=== PATIENT | female | born 1955 | race Caucasian/White ===

== ENCOUNTER → 2020-07-18 10:28 | Outpatient (BNVA) | payer BC, SELFPAY | PROVIDERS: Visit Provider Nurse Practitioner Family | DX: R53.83 Other fatigue (principal) | CPT/HCPCS: 80053; 80061; 85025 ==

== ENCOUNTER → 2020-07-26 11:05 | Outpatient (BNVA) | payer BC, SELFPAY | PROVIDERS: Visit Provider Nurse Practitioner Family | DX: D72.829 Elevated white blood cell count, unspecified (principal); Z85.42 Personal history of malignant neoplasm of other parts of uterus | CPT/HCPCS: 85007; 85025; 88175 ==

== ENCOUNTER 2020-08-01 12:31 | Outpatient (CLI) | payer BC, SELFPAY ==
--- NOTE | 2020-08-01 12:53 | ECG_ITS ---
[facility] Test Date: 2020-08-01 Pat Name: Nelsy Rodriguez Department: Room: Gender: Female Eyeglass Fitter: : 1955 Requested By: Rosa Xie Order Number: [id number] Corona MD: Venus Browning M.D. Interpretive Statements NAME OF STUDY: TREADMILL STRESS TEST INDICATION: Chest Pressure Baseline blood pressure of 105/61 mm Hg, heart rate 84 beats per minute and oxygen saturation of 96%. EKG showed normal sinus rhythm, normal axis with normal ST-Ts.. The patient exercised for 8 minutes 2 seconds on a standard [employer] protocol. Patient attained a maximum heart rate of 141 beats per minute(89% of the maximum predicted heart rate) with a blood pressure at the peak exercise of 166/76 mm Hg. The EKG at the peak exercise revealed sinus tachycardia with nonspecific ST depression. Interpretation limited by artifact. Patient did not have any chest pain or any significant arrhythmis with the exercise. Study was terminated due to exertional fatigue and shortness of breath. During the recovery phase, there were no new changes. Blood pressure at the end of the recovery phase was 144/71 mm Hg with a heart rate of 86 beats per minute and oxygen saturation of 98%. CONCLUSION: 1. Normal EKG response to treadmill exercise. Interpretation limited by artifact. 2. No exercise-induced chest pain or cardiac arrhythmia. 3. Excellent exercise tolerance, attained a maximum of 10.2 METs. Maximum VO2 of 35.7 mL/kg/min. 4. Baseline normal blood pressure with normal response to exercise. Electronically Signed On 08-02-2020 18:33:20 CDT by Venus Browning M.D. [id number]
[2020-08-01 13:01] VITALS: BMI 25.5
[2020-08-01 13:39] VITALS: BP 144/71; PULSE 87
== END 2020-08-01 12:32 | disposition home or self-care (01) ==
LOC: CDL 12:31
PROVIDERS: PCP Nurse Practitioner Family; Visit Provider Nurse Practitioner Family
DX: R07.89 Other chest pain (principal)
CPT/HCPCS: 93017

== ENCOUNTER 2020-08-02 14:36 | Outpatient (CLI) | payer BC, SELFPAY ==
[2020-08-02 15:02] LABS: Hemoglobin 14.1 g/dL (11.5-15.3); Mean Corpuscular HGB Conc 33.6 g/dL (30.0-36.0); Mean Corpuscular Hemoglobin 31.2 pg (28.0-34.0); Mean Corpuscular Volume 92.9 fL (81-99); Mean Platelet Volume 8.9 fL (7.4-10.4); Platelet Count 163 10^3/cmm (130-400); Red Blood Count 4.52 10^6/uL (4.1-5.3); White Blood Count 9.7 10^3/uL (4.0-10.0)
[2020-08-02 15:02] LABS: Add Urine Microscopic? NO; Bilirubin Urine Neg (Negative); Blood Urine Neg (Negative); Glucose Urine UA Norm (Normal); Ketones Urine Negative (Negative); Leukocyte Esterase Urine Negative (Negative); Nitrate Urine Negative (Negative); Protein Urine Neg (Negative); Specific Gravity, Urine 1.005 (1.005-1.030); Urine Appearance Clear (CLEAR); Urine Color Yellow (Yellow); Urobilinogen Urine Norm (Negative); pH Urine 7 (5-7)
[2020-08-02 15:41] LABS: C Reactive Protein 8.6 mg/L (0.0-4.9); Thyroid Stimulating Hormone 0.97 uIU/mL (0.27-4.20); Vitamin B12 935 pg/mL (232-1245)
[2020-08-02 15:58] LABS: Absolute Segmented Neutrophil 4.5 10/cmm (1.6-7.1); Eosinophils 1 %; Lymphocytes 33 %; Lymphocytes Absolute 4.8 10^3/cmm (1.2-3.4); Monocytes Absolute 0.4 10^3/cmm (0.1-0.6); Segmented Neutrophils 46 %; Total Cells Counted 100 (0-100)
[2020-08-02 16:00] LABS: Absolute Neutrophil 4.5 10^3/cmm (1.4-6.5); LAB Peripheral Smear Sent for Review; Platelet Estimate Normal (Normal)
[2020-08-02 16:08] LABS: Erythrocyte Sedimentation Rate 13 mm/hr (0-15)
== END 2020-08-02 14:37 | disposition home or self-care (01) ==
PROVIDERS: PCP Nurse Practitioner Family; Visit Provider Nurse Practitioner Family
DX: R53.83 Other fatigue (principal); D72.829 Elevated white blood cell count, unspecified; D72.819 Decreased white blood cell count, unspecified; R35.0 Frequency of micturition
CPT/HCPCS: 80500; 81000; 81003; 82607; 84443; 85007; 85027; 85651; 86140

== ENCOUNTER → 2020-08-07 14:51 | Outpatient (BNVA) | payer BC, SELFPAY | PROVIDERS: PCP Nurse Practitioner Family; Visit Provider Nurse Practitioner Family | DX: Z11.59 Encounter for screening for other viral diseases (principal); B96.89 Other specified bacterial agents as the cause of diseases classified elsewhere; J01.90 Acute sinusitis, unspecified; R05 Cough | CPT/HCPCS: 87635 ==

== ENCOUNTER 2020-08-13 11:16 | Emergency (ER) | payer BC, SELFPAY ==
[2020-08-13 11:31] VITALS: BP 148/86; PULSE 80; RESP 18; TEMP 36.9; O2SAT 97; BMI 26.2
--- NOTE | 2020-08-13 11:36 | XR_ITS ---
WS: [id number] XR chest 1V portable [id number] REASON FOR EXAM: dyspnea/cough FINDINGS: There is no previous examination for comparison. The heart and mediastinum are within normal limits. There are interstitial and pleural changes in the left lower lateral lung field. In the right lower lung field there is an ill-defined infiltrative process and a questionable cystic- like lucency. No other significant findings. XR/XR chest 1V portable [id number] IMPRESSION: Left lung changes as above. In part these are likely chronic however an acute i nflammatory process cannot be excluded. In the right lower lung there is concern for an acute inflammatory process. The cystic lucency may represent overlapping of vascular markings however a pneuma tocele or possibly even a small lung abscess is not confidently excluded on thi s single examination. Follow-up upright PA and lateral chest would be reasonabl e follow-up. If clinically warranted a CT scan of the chest would likely be def initive.
--- NOTE | 2020-08-13 12:25 | W.ED.SOB ---
HPI - SOB/Dyspnea General: Chief Complaint: Shortness of Breath/Dyspnea Stated Complaint: SOB; PREVIOUSLY TESTED COVID + Time Seen by Provider: 08/13/20 12:22 History of Present Illness: HPI Narrative: 64-year-old female with known positive COVID status. She tested 1 week ago. Today she is reporting to be more short of breath, she is 97% on room air. MD elicited complaint: shortness of breath and cough Pertinent past history: other (COVID-19 positive) Onset (ago): day(s) Context: recent illness Timing: constant Severity: moderate Exacerbating factors: exertion and coughing Relieving factors: nothing Associated symptoms: Reports chest congestion and cough; Deny abdominal pain, chest pain, diaphoresis, dizziness, extremity pain, fever(s), hemoptysis, lightheadedness, myalgias, nausea, orthopnea, palpitations, paresthesias, polydipsia, polyuria, rash, sense of impending doom, syncope or vomiting Treatment prior to arrival: none Review of Systems Const: Denies: fever(s) or diaphoresis ENMT: Denies: throat pain, ear or mastoid pain, nasal discharge or nasal congestion Card: Denies: chest pain, palpitations, lightheadedness, syncope or orthopnea Resp: Reports: chest congestion; Denies: hemoptysis GI: Denies: abdominal pain, nausea or vomiting : Denies: flank pain, difficulty voiding, dysuria, urinary frequency or urinary urgency Musc: Denies: extremity pain Skin/Breast: Denies: rash or pruritus Neuro: Denies: dizziness Endo: Denies: polyuria or polydipsia PFSH ED PFSH: Medical History Hx of cancer of uterus Surgical History History of hysterectomy for malignancy Hx of tonsillectomy Family History Mother Cancer colon Father Cancer brain Social History Smoking and tobacco status: never smoked Second hand smoke exposure: No Physical Exam Const: COMMON NORMALS: average body habitus, patient oriented x3 and alert GENERAL APPEARANCE: cooperative, comfortable, well kempt and well developed NUTRITIONAL APPEARANCE: obese ORIENTATION/CONSCIOUSNESS: Yes awake, Yes oriented to person and Yes oriented to place HENMT: COMMON NORMALS: normocephalic, atraumatic and EAC's normal HEAD & SCALP: normocephalic and atraumatic EXTERNAL AUDITORY CANAL: EAC's normal Neck/C-Spine: COMMON NORMALS: no meningeal signs Resp: COMMON NORMALS: normal respiratory effort, No retractions and No use of accessory muscles AUSCULTATION: wheezes Cardio: COMMON NORMALS: regular rate and regular rhythm RATE: regular rate RHYTHM: regular rhythm HEART SOUNDS: no murmurs GI: COMMON NORMALS: Normal to inspection, nondistended, normoactive bowel sounds present, Soft to palpation and No hepatosplenomegaly present PALPATION: Yes Soft to palpation and Yes No hepatosplenomegaly present : COMMON NORMALS: Yes no CVA tenderness BLADDER/KIDNEY EXAM: Yes no CVA tenderness Back/Pelvis: COMMON NORMALS: no CVA tenderness LUMBAR SPINE/LOWER BACK: Yes normal to inspection Extremity: COMMON NORMALS: no clubbing, cyanosis or edema, no calf tenderness and no pedal edema Neuro: COMMON NORMALS: patient oriented x3 SENSORIUM/ORIENTATION: Yes alert, Yes oriented to person and Yes oriented to place MENINGEAL SIGNS: Yes no meningeal signs Psych: APPEARANCE: Yes well kempt Skin: COMMON NORMALS: no rashes or lesions noted and turgor normal GENERAL SKIN EXAM: no rashes or lesions noted and turgor normal Course Vital Signs: Vital signs: Vital Signs Temperature 98.4 F 08/13/20 11:31 Pulse Rate 80 08/13/20 11:31 Respiratory Rate 18 08/13/20 13:25 Blood Pressure 148/86 08/13/20 11:31 Pulse Oximetry 96 08/13/20 13:25 MDM - SOB/Dyspnea MDM Narrative: Medical decision making narrative: Reviewed findings with patient her sats remained good on room air will discharge home start dexamethasone follow-up with the primary care doctor the next 1 to 2 days worsening shortness of breath return Lab Data: Labs: Lab Results 08/13/20 Range/Units 12:22 Specimen Type Arterial Sample Site Radial, right ABG pH 7.45 (7.35-7.45) ABG pCO2 39.5 (35-45) mmHg ABG pO2 68.4 L (80.0-100.0) mmH g ABG HCO3 27.1 H (22-26) mmol/L ABG O2 Saturation 96.2 ABG Base Excess 2.9 H (-2.0-2.0) mmol/ L Pierre Test Pos A-a O2 Gradient 4.4 L (5-10) mmHg Hematocrit 41.7 (37-47) % Hgb O2 Saturation 94.8 L (95-100) % Carboxyhemoglobin 0.9 (0.4-20.1) %THgb Methemoglobin 0.6 (0.4-1.5) % Total Hemoglobin 13.6 (12-16) g/dL Sodium 139.0 (131-143) mmol/L Potassium 4.0 (3.5-5.0) mmol/L Glucose 94.0 (70-115) mg/dL Ionized Calcium 1.2 (1.1-1.4) mmol/L O2 Delivery Device Room air FiO2 21.0 % Market Research Intern ID Monro Discharge Plan Discharge Patient Disposition: Home Clinical Impression: COVID-19, Asthma Condition: Stable Prescriptions: New dexamethasone 6 mg tablet 6 mg PO Q24H Qty: 7 RF: 0 No Action azithromycin [Zithromax] 250 mg tablet See Rx Instructions PO .COMPLEX Qty: 6 RF: 0 Discharge Orders: Discharge Order (Routine); Ordered 08/13/20 Ordered By: Tin Lauren Referrals: Rosa Xie FNP [Primary Care Provider] - Discharge Diet: Usual diet Discharge Activity: Increase activity as tolerated Activity Restrictions/Additional Instructions: Monitor oxygen saturations at home with your O2 sat monitor provided to you today at the time of discharge. Follow-up with your primary care doctor tomorrow via telehealth. Case management will help arrange. Discharge Date/Time: 08/13/20 13:25 Coding Level of Care Code ED Full Service Vending Driver for Jorgito Jauregui
[2020-08-13 12:35] LABS: ABG PCO2 39.5 mmHg (35-45); ABG PH Result 7.45 (7.35-7.45); Alveolar-Arterial Oxygen Gradi 4.4 mmHg (5-10); Arterial Blood Gas Hematocrit 41.7 % (37-47); Base Excess ABG 2.9 mmol/L (-2.0-2.0); Blood Gas Allen Test Pos; Blood Gas Operator Identificat MONRO; Blood Gas Sample Site Radial, right; Blood Gas Sample Type Arterial; Carboxyhemoglobin 0.9 %THgb (0.4-20.1); HCO3 ABG 27.1 mmol/L (22-26); HGB O2 Sat 94.8 % (95-100); Ionized Calcium Level - ABG 1.2 mmol/L (1.1-1.4); Methemoglobin 0.6 % (0.4-1.5); Oxygen Device ROOM AIR; Oxygen Saturation ABG 96.2; PO2 ABG 68.4 mmHg (80.0-100.0); Total Hemoglobin 13.6 g/dL (12-16)
[2020-08-13 13:25] VITALS: RESP 18; O2SAT 96
--- NOTE | 2020-08-13 14:09 | DCPLANNER ---
manager council was asked to schedule a follow up appointment for patient with primary care for a telehealth visit. manager council called patient to confirm who her primary care physician was, patient stated that she sees Rosa Xie at [facility]. manager council called [facility] clinic, a tele health visit is scheduled for Aug at 3:00 with Rosa Xie. manager council called patient and gave patient the appointment information. manager council told patient that the clinic would text patient with a link to click on and that would put patient in the waiting room to get her ready for the tele health visit.
--- NOTE | 2020-08-18 16:21 | DCPLANNER ---
Patient had follow up appointment scheduled at [facility] [place] [facility] - patient did attend appointment.
== END 2020-08-13 13:25 | disposition home or self-care (01) ==
PROVIDERS: Emergency Provider Family Medicine; PCP Nurse Practitioner Family
DX: U07.1 COVID-19 (principal); Z85.42 Personal history of malignant neoplasm of other parts of uterus
CPT/HCPCS: 12345; 36600; 71045; 80051; 82810; 83986; 99281; 99283

== ENCOUNTER 2020-09-07 14:10 | Outpatient (CLI) | payer BC, SELFPAY ==
--- NOTE | 2020-09-07 14:30 | MM_ITS ---
WS: [id number] Bilateral screening digital mammogram, 09/07/2020 Clinical Data: screening Comparison: 05/03/2014, 03/23/2013, 03/11/2012. Findings: The breast parenchymal pattern shows extreme density No spiculated masses or clustered calcifications are seen. There are no secondary signs of carcinoma. There are small lymph nodes in each axilla. Imp ression: 1. Negative bilateral mammogram unchanged. 2. Recommend annual screening mammograms. MM/[place] [id number] BIRADS: 1-Negative FOLLOW UP: 1 Year Follow-up The CAD mechanical and auto body car checker was used.
== END 2020-09-07 14:11 | disposition home or self-care (01) ==
LOC: RADSHAW 14:14
PROVIDERS: PCP Nurse Practitioner Family; Visit Provider Nurse Practitioner Family
DX: Z12.31 Encounter for screening mammogram for malignant neoplasm of breast (principal)
CPT/HCPCS: 77067

== ENCOUNTER 2020-10-17 15:24 | Outpatient (CLI) | payer BC, SELFPAY ==
--- NOTE | 2020-10-17 15:36 | XRR_ITS ---
PROCEDURE INFORMATION: Exam: XR Chest, 2 Views Exam date and time: 10/17/2020 3:37 PM Age: 65 years old Clinical indication: Dyspnea; Patient HX: SOB post covid; Additional info: R06.00 - dyspnea, unspecified TECHNIQUE: Imaging protocol: XR of the chest Views: 2 views. COMPARISON: CR XR chest 1V portable [id number] 08/13/2020 11:59 AM FINDINGS: Lungs: Mildly hyperaerated lungs consistent with deep inspiratory effort vs reactive airway disease vs mild COPD . Pleural space: Unremarkable. No pleural effusion. No pneumothorax. Heart/Mediastinum: Unremarkable. No cardiomegaly. Bones/joints: Unremarkable. XR/XR chest 2V* [id number] IMPRESSION: Mildly hyperaerated lungs consistent with deep inspiratory effort vs reactive airway disease vs mild COPD .
== END 2020-10-17 15:25 | disposition home or self-care (01) ==
PROVIDERS: PCP Nurse Practitioner Family; Visit Provider Nurse Practitioner Family
DX: R06.00 Dyspnea, unspecified (principal)
CPT/HCPCS: 71046

== ENCOUNTER → 2020-11-28 13:23 | Outpatient (BNVA) | payer BC, SELFPAY | PROVIDERS: PCP Nurse Practitioner Family; Visit Provider Internal Medicine Critical Care Medicine | DX: R06.02 Shortness of breath (principal) | CPT/HCPCS: 87635 ==

== ENCOUNTER 2020-12-04 09:13 | Outpatient (CLI) | payer BC, SELFPAY ==
--- NOTE | 2020-12-04 | USCV_ITS ---
Nelsy Rodriguez Age: 65 Gender: F : 1955 Exam Date: 12/04/2020 10:18 Ordering Phys: Sheeba Lawson MD Technologist: Amada Woo Exam Location: [facility] [place] Indication: SOB Aortic Velocity @ SMA (cm/s) CONCLUSIONS 1-Normal left ventricular cavity size. Normal left ventricular systolic function. Left ventricular ejection fraction is estimated at 61 %. Grade II/IV diastolic dysfunction, moderately elevated filling pressures. 2-There is no pericardial effusion. 3-Pulmonary artery systolic pressure is within normal limits. 4-No significant valve abnormalities. 5-There are no prior echocardiogram studies to compare. Richard Jones MD Edited by: CV Washing Machine Repairer (Electronically Signed) Final Date: 04 December 2020 18:59 Amended: 05 December 2020 06:42 C
--- NOTE | 2020-12-04 11:11 | PFTS_ITS ---
Date of Study:12/04/20 Date of Dictation: MECHANICS: Forced vital capacity (FVC) is normal. Forced expiratory volume in one second (FEV1) is normal. FEV1/FVC is normal. FLOW VOLUME LOOP: Likely normal. The initial peak expiratory flow is not present in the flow volume loop. LUNG VOLUMES: Total lung capacity (TLC) is normal. Residual volume (RV) is mildly decreased. DIFFUSING CAPACITY FOR CARBON MONOXIDE: Normal. INTERPRETATION: The prebronchodilator spirometry is normal. No postbronchodilator spirometry was performed. Lung volumes showed mild reduction in residual volume which is likely nonspecific. Gas exchange (DLCO) is normal. MTDD
== END 2020-12-04 09:14 | disposition home or self-care (01) ==
PROVIDERS: PCP Nurse Practitioner Family; Visit Provider Internal Medicine Critical Care Medicine
DX: R06.02 Shortness of breath (principal); I51.81 Takotsubo syndrome
CPT/HCPCS: 93306; 94010; 94726; 94729

== ENCOUNTER → 2021-03-27 10:39 | Outpatient (BNVA) | payer BC, SELFPAY | PROVIDERS: PCP Nurse Practitioner Family; Visit Provider Nurse Practitioner Family | DX: D72.829 Elevated white blood cell count, unspecified (principal); R53.81 Other malaise; R53.83 Other fatigue; Z79.899 Other long term (current) drug therapy | CPT/HCPCS: 80053; 85025 ==

== ENCOUNTER → 2021-04-09 08:28 | Outpatient (BNVA) | payer BC, SELFPAY | PROVIDERS: PCP Nurse Practitioner Family; Visit Provider Nurse Practitioner Family | DX: D72.829 Elevated white blood cell count, unspecified (principal) | CPT/HCPCS: 85007; 85027 ==

== ENCOUNTER 2021-04-23 12:01 | Outpatient (CLI) | payer BC, SELFPAY ==
[2021-04-23 12:29] LABS: Basophils # 0.1 10^3/uL (0.0-0.1); Basophils % 0.7 %; Eosinophils # 0.1 10^3/uL (0.0-0.8); Eosinophils % 0.9 %; Hematocrit 42.1 % (37.0-47.0); Hemoglobin 14.6 g/dL (11.5-15.3); Lymphocytes # 10.6 10^3/uL (0.8-4.8); Mean Corpuscular HGB Conc 34.7 g/dL (30.0-36.0); Mean Corpuscular Volume 89.4 fL (81-99); Mean Platelet Volume 9.4 fL (7.4-10.4); Monocytes # 0.7 10^3/uL (0.2-0.9); Monocytes % 4.4 %; Neutrophils # 4.69 10^3/uL (1.8-7.7); Neutrophils % 28.8 %; Nucleated Red Blood Cells % 0 %; Platelet Count 240 10^3/cmm (130-400); Red Blood Count 4.71 10^6/uL (4.1-5.3); Red Cell Distribution Width 12.5 % (12.1-15.1); White Blood Count 16.3 10^3/uL (4.0-10.0)
[2021-04-23 12:54] LABS: Slide Review Slide Review Perform
--- NOTE | 2021-04-24 17:47 | ONC CON_ITS ---
Dr. Cox New Patient Note Patient: Nelsy Rodriguez Unit #: [id number]: 1955 Dicatated By: Michelle Cox M.D.Date of Visit: Apr 23, 2021 Onc MED New Patient/Consult Referring Physician: Liz Jacob History of Present Illness: Ms. Jaqueline Mariscal, is a 84-year-old female with a history of increased white blood cells since October 2020, as per patient her white blood count never got below 12,000. As per patient she has history of walking pneumonia about a year ago at that time she was treated with antibiotics and steroids for 10 days and responded well, she has history of chronic arthritis which is being treated with Mobic, patient also has history of COPD asthma for which she takes Breo, which is a combination of fluticasone and Vilanterol inhaler, Denies [id number] steroid-containing medication or regular use of steroids or herbs Patient denies smoking or secondhand smoking denies any alcohol use. Patient denies any night sweats, denies any weight loss, denies any abdominal fullness, denies any peripheral lymphadenopathy Past Medical History: Ms. Vieras medical history consists of history of uterine cancer and covid 19 in 2020 (Treated). Past Surgical History: Ms. Vieras surgical/procedural history consists of hysterectomy and tonsillectomy. Medications: Furosemide 1 Tablet (of 20 mg) Oral daily Allergies: No Known Allergies. Social History: Ms. Rodriguez is . Ms. Rodriguez has never smoked. She has no history of drinking. Family History: Ms. Rodriguez's mother at age 68: colon cancer. Ms. Vieras father at age 69: brain cancer. Review Of Symptoms: Review of Systems is not available for this patient. Vital Signs: Performed on Apr 23, 2021 15:02: 0, 0, 26.09, 1.74 sq.m, 64 in, 98 %, 64 /min, 18 /min, 125/74 mm(hg), 97.2 F (LOW), and 152 lbs (HIGH). Performance Status: 0 - Fully active, able to carry on all predisease activities without restrictions. (ECOG) Physical Examination: ENMT - No mouth sores, no thrush, no jaundice, No cervical or axillary lymphadenopathy, Respiratory - Lungs are clear to auscultation, Cardiovascular - Regular rate and rhythm of heart, Abdomen - Soft, bowel sounds present, Extremities - No visible edema or rash. Lab/Imaging: Most recent lab results are not available for this patient. Impression: Isolated mild leukocytosis, etiology unclear could be due to chronic steroid-containing inhalers use, stress-related, considering her age underlying myeloproliferative disorder cannot be ruled out but less likely, or due to chronic inflammatory process like arthritis, History of arthritis, COPD, history of walking pneumonia Hypothyroidism Plan: Discussed with patient regarding her labs white blood count 11.3, normal being 4-10,000, hemoglobin 14.9 hematocrit 46.7 platelets 264,000 with normal differential Clinically, patient doing well with no signs symptoms history of acute or chronic infection, follow-up labs shows improvement in her mild isolated Leukocytosis ,, at this point ,we will monitor and she will return to clinic in 1 month with CBC with differential, if there is a worsening of mild isolated Leukocytosis, will consider holding off steroid containing inhaler, if there is no improvement, will consider whole blood flow cytometry to rule out myeloproliferative disorder Signed By: Michelle Cox M.D. <<Signature on File>>
--- NOTE | 2021-04-25 09:00 | ONC CON_ITS ---
Dr. Cox New Patient Note Patient: Nelsy Rodriguez Unit #: [id number]: 1955 Dicatated By: Michelle Cox M.D.Date of Visit: Apr 23, 2021 Onc MED New Patient/Consult Referring Physician: Liz Jacob History of Present Illness: Ms. Nelsy Rodriguez, is a 65-year-old female with history of progressive leukocytosis/lymphocytosis, as per patient in June 2020 she went to see her PMD with progressive shortness of breath and lab work-up at that time showed a white blood count was around 20,000, she was treated with antibiotics with that her white blood count dropped down to 9000 range. Repeat CBC done on March 27, 2021 showed white blood count 13.8, hemoglobin 14.7 hematocrit 43.5 platelets 234,000 and lymphocytes 9300, repeat CBC done on April 09, 2021 shows white blood count 13.5, hemoglobin 14.3 hematocrit 43 platelets 202,000 with absolute lymphocyte counts 8400. Patient denies any weight loss rather weight gain since she was diagnosed with Covid infection in July 2020, also complaining of hot flashes since hysterectomy For, As per patient early uterine cancer, done 8-9 years ago. But denies any abdominal fullness denies any peripheral lymphadenopathy denies any recurrent infections denies any dysphagia, denies any jaundice, denies any skin rash or itching denies any recurrent fever, denies any bony pains but generalized weakness and fatigue Patient denies complaint of alcohol use Past Medical History: Ms. Rodriguez's medical history consists of history of uterine cancer and covid 19 in 2019 (Treated). Past Surgical History: Ms. Rodriguez's surgical/procedural history consists of hysterectomy and tonsillectomy. Medications: Furosemide 1 Tablet (of 20 mg) Oral daily Allergies: No Known Allergies. Social History: Ms. Rodriguez is . Ms. Rodriguez has never smoked. She has no history of drinking. Family History: Ms. Rodriguez's mother at age 68: colon cancer. Ms. Rodriguez's father at age 69: brain cancer. Review Of Symptoms: Review of Systems is not available for this patient. Vital Signs: Performed on Apr 23, 2021 15:02: 0, 0, 26.09, 1.74 sq.m, 64 in, 98 %, 64 /min, 18 /min, 125/74 mm(hg), 97.2 F (LOW), and 152 lbs (HIGH). Performance Status: 0 - Fully active, able to carry on all predisease activities without restrictions. (ECOG) Physical Examination: ENMT - No mouth sores, no thrush, no jaundice, No cervical or axillary lymphadenopathy, Respiratory - Lungs are clear to auscultation, Cardiovascular - Regular rate and rhythm of heart, Abdomen - Soft, bowel sounds present, Extremities - No visible edema or rash. Lab/Imaging: Most recent lab results are not available for this patient. Impression: Isolated leukocytosis/lymphocytosis, etiology most likely lymphoproliferative disorder like CLL or SLL other possibility could be viral infection, patient was diagnosed with Covid infection in July 2020 or medication use but less likely or chronic inflammation Generalized weakness and fatigue, etiology unclear could be due to above History of hysterectomy about 8 or 9 years ago for as per patient early uterine cancer. Plan: Discussed with patient regarding etiology of leukocytosis/lymphocytosis, on exam there is no evidence of peripheral lymphadenopathy or organomegaly so etiology could be lymphoproliferative disorder like chronic lymphocytic leukemia or small lymphocytic lymphoma or viral infection, patient has history of Covid infection in July 2020. Patient denies any obvious B symptoms like weight loss, drenching sweating or recurrent fever but generalized weakness and fatigue which could be multifactorial At this point, will proceed with whole blood flow cytometry if it confirms CLL or lymphoproliferative disorder, will consider CT scan of chest abdomen pelvis to rule out central lymphadenopathy or organomegaly. Patient return to clinic in 1 month with CBC CMP and LDH, whole blood flow cytometry. Signed By: Michelle Cox M.D. <<Signature on File>>
[2021-04-25 14:43] LABS: Miscellaneous Test See Scanned Lab Rpt
== END 2021-04-23 12:02 | disposition home or self-care (01) ==
LOC: ONCMED 12:04
PROVIDERS: PCP Nurse Practitioner Family; Visit Provider Internal Medicine Hematology & Oncology
DX: D72.820 Lymphocytosis (symptomatic) (principal); M19.90 Unspecified osteoarthritis, unspecified site; J44.9 Chronic obstructive pulmonary disease, unspecified; E03.9 Hypothyroidism, unspecified; Z87.01 Personal history of pneumonia (recurrent); Z79.899 Other long term (current) drug therapy
CPT/HCPCS: 85025; 88184; 88185; 99204

== ENCOUNTER 2021-05-31 10:22 | Outpatient (CLI) | payer BC, SELFPAY ==
--- NOTE | 2021-05-31 12:58 | ONC FU_ITS ---
Dr. Cox follow up note Patient: Nelsy Rodriguez Unit #: [id number]: 1955 Dicatated By: Michelle Cox M.D.Date of Visit:May 31, 2021 Onc Med Follow-up/Prog Note History of Present Illness: Ms. Nelsy Rodriguez, is a 65-year-old female with history of progressive leukocytosis/lymphocytosis, as per patient in June 2020 she went to see her PMD with progressive shortness of breath and lab work-up at that time showed a white blood count was around 20,000, she was treated with antibiotics with that her white blood count dropped down to 9000 range. Repeat CBC done on March 27, 2021 showed white blood count 13.8, hemoglobin 14.7 hematocrit 43.5 platelets 234,000 and lymphocytes 9300, repeat CBC done on April 09, 2021 shows white blood count 13.5, hemoglobin 14.3 hematocrit 43 platelets 202,000 with absolute lymphocyte counts 8400. Patient denies any weight loss rather weight gain since she was diagnosed with Covid infection in July 2020, also complaining of hot flashes since hysterectomy For, As per patient early uterine cancer, done 8-9 years ago. But denies any abdominal fullness denies any peripheral lymphadenopathy denies any recurrent infections denies any dysphagia, denies any jaundice, denies any skin rash or itching denies any recurrent fever, denies any bony pains but generalized weakness and fatigue Patient denies complaint of alcohol use Whole blood flow cytometry done on April 23, 2021 showed CD5 positive monotypic B-cell population favors atypical CLL/small lymphocytic lymphoma FISH was recommended for further prognostic assessment and to fully exclude an unusual mantle cell lymphoma , As flow cytometric also showed CD38 expression and CD 49d expression, which have been reported adverse prognostic marker in CLL/SLL Came for follow-up, denies any specific complaints, no fever chills, no nausea or vomiting, no diarrhea or constipation, no hemoptysis or hematemesis, no night sweats, no recurrent fever, no weight loss, no peripheral lymphadenopathy, no abdominal fullness, no jaundice, no petechia or ecchymosis Medications: Furosemide 1 Tablet (of 20 mg) Oral daily Allergies: No Known Allergies. Review of Systems: Review of Systems is not available for this patient. Vital Signs: Performed on May 31, 2021 10:38 Height - 64.00 in Weight - 153.6 lbs (HIGH) BSA - 1.75 sq.m BMI - 26.37 Temperature - 97.7 F (LOW) Pulse - 74 /min Respiration - 18 /min BP - 135/77 mm(hg) O2 Sat - 99 % Pain - 0 Fatigue - 5 Performance Status: 0 - Fully active, able to carry on all predisease activities without restrictions. (ECOG) Physical Examination: ENMT - No mouth sores, no thrush, no jaundice no peripheral lymphadenopathy, Respiratory - Lungs are clear to auscultation, Cardiovascular - Regular rate and rhythm of heart, Abdomen - Soft, bowel sounds present, Extremities - No visible edema. Lab/Imaging: Most recent lab results are not available for this patient. Impression: CD5 positive monotypic B-cell population per whole blood flow cytometry done on April 23, 2021, favors atypical chronic lymphocytic leukemia/small lymphocytic lymphoma, CD38 expression and CD 49d, expression reported as adverse prognostic markers and CLL/SLL, Isolated leukocytosis/lymphocytosis due to above Generalized weakness and fatigue, etiology unclear could be due to above History of hysterectomy about 8 or 9 years ago for as per patient early uterine cancer. Plan: Discussed with patient regarding her whole blood flow cytometry which confirmed lymphoproliferative disorder like atypical CLL/SLL as it showed CD5 positive monotypic B-cell population and also showed CD38 expression and CD 49d expression which have been reported as adverse prognostic marker in CLL/SLL, Clinically, patient is doing well with no B symptoms, no peripheral lymphadenopathy, no organomegaly on exam and follow-up CBC shows isolated mild leukocytosis/lymphocytosis with normal hemoglobin and platelet count, at this point we will consider CLL molecular prognostic profiling and also abdominal sonogram to check liver and spleen size and then patient return to clinic in 1 month with CBC CMP LDH and beta-2 microglobulin Signed By: Michelle Cox M.D. <<Signature on File>>
== END 2021-05-31 10:23 | disposition home or self-care (01) ==
PROVIDERS: PCP Nurse Practitioner Family; Visit Provider Internal Medicine Hematology & Oncology
DX: C91.10 Chronic lymphocytic leukemia of B-cell type not having achieved remission (principal); Z85.42 Personal history of malignant neoplasm of other parts of uterus; Z86.16 Personal history of COVID-19; Z90.710 Acquired absence of both cervix and uterus; Z79.899 Other long term (current) drug therapy
CPT/HCPCS: 99214

== ENCOUNTER 2021-06-04 08:51 | Outpatient (CLI) | payer BC, SELFPAY ==
[2021-06-04 09:34] LABS: Basophils # 0.1 10^3/uL (0.0-0.1); Basophils % 0.8 %; Eosinophils # 0.2 10^3/uL (0.0-0.8); Hemoglobin 15.2 g/dL (11.5-15.3); Lymphocytes % 69.6 %; Mean Corpuscular HGB Conc 33.8 g/dL (30.0-36.0); Mean Corpuscular Hemoglobin 30.8 pg (28.0-34.0); Mean Corpuscular Volume 91.1 fL (81-99); Mean Platelet Volume 9.6 fL (7.4-10.4); Monocytes # 0.7 10^3/uL (0.2-0.9); Monocytes % 4.6 %; Neutrophils # 3.42 10^3/uL (1.8-7.7); Neutrophils % 23.9 %; Nucleated Red Blood Cells % 0 %; Platelet Count 229 10^3/cmm (130-400); Positive M 1; Red Blood Count 4.94 10^6/uL (4.1-5.3); Red Cell Distribution Width 12.8 % (12.1-15.1); White Blood Count 14.4 10^3/uL (4.0-10.0)
[2021-06-04 09:43] LABS: Slide Review Slide Review Perform
[2021-06-04 10:00] LABS: Alanine Aminotransferase 15 U/L (0-33); Albumin Level 4.6 g/dL (3.5-5.2); Alkaline Phosphatase 92 IU/L (35-105); Anion Gap 15.3 (5-19); Aspartate Amino Transferase 22 U/L (0-32); Blood Urea Nitrogen 9 mg/dL (8-23); Calcium 9.1 mg/dL (8.5-10.5); Carbon Dioxide 28 mmol/L (22-29); Chloride 101 mmol/L (98-107); Globulin 2.3 g/dL (1.3-4.6); Glomerular Filtration Rate 84.2 mL/min (90-130); Glucose 78 mg/dL (65-115); Lactate Dehydrogenase 196 U/L (135-214); Osmolality Calculated 288 mOsm/kg (285-295); Potassium 4.3 mmol/L (3.5-5.1); Sodium 140 mmol/L (136-145); Total Bilirubin 0.6 mg/dL (0.15-1.2); Total Protein 6.9 g/dL (6.6-8.7)
[2021-06-05 13:47] LABS: Beta-2-Microglobulin 2.03 mg/L (< OR = 2.51)
== END 2021-06-04 08:52 | disposition home or self-care (01) ==
LOC: ONCMED 08:52
PROVIDERS: PCP Nurse Practitioner Family; Visit Provider Internal Medicine Hematology & Oncology
DX: D72.829 Elevated white blood cell count, unspecified (principal)
CPT/HCPCS: 80053; 81263; 82232; 83615; 85025; 88184; 88185; 88264; 88271; 88367; 88374

== ENCOUNTER → 2021-06-12 15:16 | Outpatient (BNVA) | payer BC, SELFPAY | PROVIDERS: PCP Nurse Practitioner Family; Visit Provider Nurse Practitioner Family | DX: R25.2 Cramp and spasm (principal) | CPT/HCPCS: 80048 ==

== ENCOUNTER 2021-07-25 08:18 | Outpatient (CLI) | payer BC, SELFPAY ==
--- NOTE | 2021-07-25 08:33 | US_ITS ---
WS: [id number] Complete ABDOMINAL ULTRASOUND HISTORY: ELEVATED WHITE BLOOD CELL COUNT COMPARISON: None available. Liver: 14.4 cm in length. Liver is normal size and echogenicity with no mass or intrahepatic dilatati on. Gallbladder: Normally distended with no gallstones, wall thickening or pericholecystic fluid. Gallbladder wall thickness: 0.2 cm. Pancreas: Normal size and echogenicity. CBD: 0.3 cm. Right kidney: 9.6 cm x 3.6 cm x 4.5 cm. No mass, cortical thickening or hydronephrosis. Left kidney: 10.0 cm x 5.6 cm x 3.9 cm. No mass, cortical thickening or hydronephrosis. Spleen: Normal size and echogenicity. Normal size spleen at 8.3 cm in length. Abdominal aorta and IVC are within normal limits. No ascites. US/US abdomen complete* [id number] IMPRESSION: Normal complete abdomen ultrasound.
== END 2021-07-25 08:19 | disposition home or self-care (01) ==
LOC: US 08:21
PROVIDERS: PCP Nurse Practitioner Family; Visit Provider Internal Medicine Hematology & Oncology
DX: D72.829 Elevated white blood cell count, unspecified (principal)
CPT/HCPCS: 76700

== ENCOUNTER 2021-07-26 07:53 | Outpatient (CLI) | payer BC, SELFPAY ==
[2021-07-26 08:42] LABS: Basophils # 0.1 10^3/uL (0.0-0.1); Basophils % 0.9 %; Eosinophils # 0.2 10^3/uL (0.0-0.8); Eosinophils % 1.6 %; Hematocrit 42.5 % (37.0-47.0); Hemoglobin 14.5 g/dL (11.5-15.3); Lymphocytes # 9.7 10^3/uL (0.8-4.8); Lymphocytes % 66.8 %; Mean Corpuscular HGB Conc 34.1 g/dL (30.0-36.0); Mean Corpuscular Hemoglobin 30.6 pg (28.0-34.0); Mean Corpuscular Volume 89.7 fl (81-99); Mean Platelet Volume 9.5 fL (7.4-10.4); Monocytes # 0.7 10^3/uL (0.2-0.9); Monocytes % 5.1 %; Neutrophils # 3.71 10^3/uL (1.8-7.7); Neutrophils % 25.5 %; Nucleated Red Blood Cells % 0 %; Platelet Count 213 10^3/cmm (130-400); Red Blood Count 4.74 10^6/uL (4.1-5.3); Red Cell Distribution Width 12.4 % (12.1-15.1); White Blood Count 14.6 10^3/uL (4.0-10.0)
[2021-07-26 08:55] LABS: Alanine Aminotransferase 13 U/L (0-33); Albumin Level 4.5 g/dL (3.5-5.2); Alkaline Phosphatase 87 IU/L (35-105); Anion Gap 15.1 (5-19); Aspartate Amino Transferase 18 U/L (0-32); Blood Urea Nitrogen 13 mg/dL (8-23); Carbon Dioxide 26 mmol/L (22-29); Chloride 101 mmol/L (98-107); Globulin 2.2 g/dL (1.3-4.6); Glomerular Filtration Rate 84.2 mL/min (90-130); Glucose 83 mg/dL (65-115); Lactate Dehydrogenase 172 U/L (135-214); Osmolality Calculated 285 mOsm/kg (285-295); Potassium 4.1 mmol/L (3.5-5.1); Sodium 138 mmol/L (136-145); Total Bilirubin 0.7 mg/dL (0.15-1.2); Total Protein 6.7 g/dL (6.6-8.7)
[2021-07-26 09:28] LABS: Slide Review Slide Review Perform
--- NOTE | 2021-07-26 11:09 | ONC FU_ITS ---
Dr. Cox follow up note Patient: Nelsy Rodriguez Unit #: [id number]: 1955 Dicatated By: Michelle Cox M.D.Date of Visit:Jul 26, 2021 Onc Med Follow-up/Prog Note History of Present Illness: Ms. Nelsy Rodriguez, is a 65-year-old female with history of progressive leukocytosis/lymphocytosis, as per patient in June 2020 she went to see her PMD with progressive shortness of breath and lab work-up at that time showed a white blood count was around 20,000, she was treated with antibiotics with that her white blood count dropped down to 9000 range. Repeat CBC done on March 27, 2021 showed white blood count 13.8, hemoglobin 14.7 hematocrit 43.5 platelets 234,000 and lymphocytes 9300, repeat CBC done on April 09, 2021 shows white blood count 13.5, hemoglobin 14.3 hematocrit 43 platelets 202,000 with absolute lymphocyte counts 8400. Patient denies any weight loss rather weight gain since she was diagnosed with Covid infection in July 2020, also complaining of hot flashes since hysterectomy For, As per patient early uterine cancer, done 8-9 years ago. But denies any abdominal fullness denies any peripheral lymphadenopathy denies any recurrent infections denies any dysphagia, denies any jaundice, denies any skin rash or itching denies any recurrent fever, denies any bony pains but generalized weakness and fatigue Patient denies complaint of alcohol use Whole blood flow cytometry done on April 23, 2021 showed CD5 positive monotypic B-cell population favors atypical CLL/small lymphocytic lymphoma FISH was recommended for further prognostic assessment and to fully exclude an unusual mantle cell lymphoma , As flow cytometric also showed CD38 expression and CD 49d expression, which have been reported adverse prognostic marker in CLL/SLL ,Prognostic profiling for CLL showed IGVH mutation, denotes favorable prognosis and trisomy 12 denotes intermediate prognosis, beta-2 microglobulin 1.96 normal being less than 2.51 mg/L, LDH 172 normal being 135-214 Abdominal sonogram Done on July 25, 2021 shows no organomegaly Came for follow-up, denies any new signs symptoms, no peripheral lymphadenopathy, no abdominal fullness, no night sweats, no recurrent fever, no weight loss, no jaundice, no petechia or ecchymosis Medications: Furosemide 1 Tablet (of 20 mg) Oral daily Allergies: No Known Allergies. Review of Systems: Review of Systems is not available for this patient. Vital Signs: Performed on Jul 26, 2021 09:25 Height - 64.00 in Weight - 157.0 lbs (HIGH) BSA - 1.76 sq.m BMI - 26.95 Temperature - 97.0 F (LOW) Pulse - 74 /min Respiration - 18 /min BP - 139/76 mm(hg) O2 Sat - 99 % Pain - 0 Performance Status: 0 - Fully active, able to carry on all predisease activities without restrictions. (ECOG) Physical Examination: ENMT - No mouth sores, no thrush, no jaundice no cervical lymphadenopathy, Respiratory - Lungs are clear to auscultation, Cardiovascular - Regular rate and rhythm of heart, Abdomen - Soft, bowel sounds present, Extremities - No visible edema or rash. Lab/Imaging: Most recent lab results are not available for this patient. 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 Plan: Discussed with patient regarding her labs white blood count 14.6 hemoglobin 14.5 hematocrit 42.5 platelets 213,000 absolute lymphocyte count 9700 compared to 10,000 previously and prognostic profiling shows, IGVH mutated, trisomy 12 Abdominal sonogram shows no organomegaly or lymphadenopathy Clinically, patient doing well with no new signs symptom, no B symptoms, follow-up CBC shows mild leukocytosis/lymphocytosis with normal hemoglobin and platelet count, prognostic profiling confirmed favorable IGVH mutation and trisomy 12 which denotes intermediate prognosis, testing for 17p deletion and T p53 mutation was also requested but somehow was not done, we will discuss with lab and if is not performed, will reorder. So based on patient's no symptoms and her lab work-up shows no obvious sign of disease progression but mild lymphocytosis/leukocytosis with a normal hemoglobin and platelet count and no organomegaly seen on ultrasound, no peripheral lymphadenopathy, clinically she is stage 0, in that case we will rather monitor her with physical exam as well as lab work-up so she will return to clinic in 3 months with CBC CMP and LDH. Patient was advised to call us in case she has any of the symptoms like drenching night sweats, any unintentional weight loss or peripheral lymphadenopathy or recurrent fever. Signed By: Michelle Cox M.D. <<Signature on File>>
== END 2021-07-26 07:54 | disposition home or self-care (01) ==
PROVIDERS: PCP Nurse Practitioner Family; Visit Provider Internal Medicine Hematology & Oncology
DX: C91.10 Chronic lymphocytic leukemia of B-cell type not having achieved remission (principal); R53.1 Weakness; R53.82 Chronic fatigue, unspecified; Z85.41 Personal history of malignant neoplasm of cervix uteri; Z90.710 Acquired absence of both cervix and uterus; Z79.899 Other long term (current) drug therapy
CPT/HCPCS: 36415; 80053; 83615; 85025; 99214

== ENCOUNTER 2021-10-25 09:00 | Outpatient (CLI) | payer MEDICARE, OTHER, SELFPAY ==
[2021-10-25 09:38] LABS: Basophils # 0.1 10^3/uL (0.0-0.1); Basophils % 0.9 %; Eosinophils # 0.3 10^3/uL (0.0-0.8); Eosinophils % 1.7 %; Hematocrit 41.2 % (37.0-47.0); Hemoglobin 14.1 g/dL (11.5-15.3); Lymphocytes # 9.6 10^3/uL (0.8-4.8); Lymphocytes % 64.4 %; Mean Corpuscular HGB Conc 34.2 g/dL (30.0-36.0); Mean Corpuscular Volume 90.5 fl (81-99); Mean Platelet Volume 9.4 fL (7.4-10.4); Monocytes # 0.8 10^3/uL (0.2-0.9); Monocytes % 5.1 %; Neutrophils # 4.13 10^3/uL (1.8-7.7); Neutrophils % 27.8 %; Nucleated Red Blood Cells % 0 %; Platelet Count 219 10^3/cmm (130-400); Red Blood Count 4.55 10^6/uL (4.1-5.3); Red Cell Distribution Width 12.5 % (12.1-15.1); White Blood Count 14.8 10^3/uL (4.0-10.0)
[2021-10-25 09:55] LABS: Alanine Aminotransferase 14 U/L (0-33); Albumin Level 4.4 g/dL (3.5-5.2); Alkaline Phosphatase 81 IU/L (35-105); Anion Gap 17.6 (5-19); Aspartate Amino Transferase 19 U/L (0-32); Blood Urea Nitrogen 16 mg/dL (8-23); Calcium 8.8 mg/dL (8.5-10.5); Carbon Dioxide 23 mmol/L (22-29); Chloride 103 mmol/L (98-107); Globulin 2.1 g/dL (1.3-4.6); Glucose 83 mg/dL (65-115); Lactate Dehydrogenase 168 U/L (135-214); Osmolality Calculated 288 mOsm/kg (285-295); Potassium 4.6 mmol/L (3.5-5.1); Sodium 139 mmol/L (136-145); Total Bilirubin 0.6 mg/dL (0.15-1.2); Total Protein 6.5 g/dL (6.6-8.7)
[2021-10-25 10:10] LABS: Slide Review Slide Review Perform
== END 2021-10-25 09:01 | disposition home or self-care (01) ==
LOC: ONCMED 09:06
PROVIDERS: PCP Nurse Practitioner Family; Visit Provider Internal Medicine Hematology & Oncology
DX: D72.829 Elevated white blood cell count, unspecified (principal); R06.02 Shortness of breath; U07.1 COVID-19; J45.909 Unspecified asthma, uncomplicated
CPT/HCPCS: 36415; 80053; 83615; 85025; 99214

== ENCOUNTER 2022-02-10 13:39 | Outpatient (CLI) | payer MEDICARE, OTHER, SELFPAY ==
[2022-02-10 14:42] LABS: Basophils # 0.1 10^3/uL (0.0-0.1); Basophils % 0.7 %; Eosinophils # 0.3 10^3/uL (0.0-0.8); Eosinophils % 1.4 %; Hematocrit 43.1 % (37.0-47.0); Hemoglobin 14.8 g/dL (11.5-15.3); Lymphocytes # 11.5 10^3/uL (0.8-4.8); Lymphocytes % 64.7 %; Mean Corpuscular HGB Conc 34.3 g/dL (30.0-36.0); Mean Corpuscular Hemoglobin 31.1 pg (28.0-34.0); Mean Corpuscular Volume 90.5 fl (81-99); Mean Platelet Volume 9.2 fL (7.4-10.4); Monocytes # 0.9 10^3/uL (0.2-0.9); Monocytes % 5.2 %; Neutrophils # 4.93 10^3/uL (1.8-7.7); Neutrophils % 27.8 %; Nucleated Red Blood Cells % 0 %; Platelet Count 228 10^3/cmm (130-400); Red Blood Count 4.76 10^6/uL (4.1-5.3); Red Cell Distribution Width 12.6 % (12.1-15.1); White Blood Count 17.7 10^3/uL (4.0-10.0)
[2022-02-10 15:07] LABS: Slide Review Slide Review Perform
[2022-02-10 15:08] LABS: Alanine Aminotransferase 17 U/L (0-33); Albumin Level 4.7 g/dL (3.5-5.2); Alkaline Phosphatase 100 IU/L (35-105); Blood Urea Nitrogen 14 mg/dL (8-23); Calcium 9.6 mg/dL (8.5-10.5); Carbon Dioxide 28 mmol/L (22-29); Chloride 101 mmol/L (98-107); Globulin 2.2 g/dL (1.3-4.6); Glucose 87 mg/dL (65-115); Osmolality Calculated 286 mOsm/kg (285-295); Sodium 138 mmol/L (136-145); Total Bilirubin 0.4 mg/dL (0.15-1.2); Total Protein 6.9 g/dL (6.6-8.7)
[2022-02-10 15:13] LABS: Anion Gap 13.1 (5-19)
[2022-02-10 15:14] LABS: Aspartate Amino Transferase 23 U/L (0-32); Lactate Dehydrogenase 210 U/L (135-214); Potassium 4.1 mmol/L (3.5-5.1)
--- NOTE | 2022-02-10 21:40 | ONC FU_ITS ---
Kyra Arauz Progress Note Patient: Nelsy Rodriguez Unit #: [id number]: 1955 Dicatated By: Kyra Arauz N.P.Date of Visit:Feb 10, 2022 Onc MED Follow-up/Prog Note Chief Complaint: Leukocytosis/lymphocytosis History of Present Illness: Ms. Nelsy Rodriguez, is a 65-year-old female with history of progressive leukocytosis/lymphocytosis, as per patient in June 2020 she went to see her PMD with progressive shortness of breath and lab work-up at that time showed a white blood count was around 20,000, she was treated with antibiotics with that her white blood count dropped down to 9000 range. Repeat CBC done on March 27, 2021 showed white blood count 13.8, hemoglobin 14.7 hematocrit 43.5 platelets 234,000 and lymphocytes 9300, repeat CBC done on April 09, 2021 shows white blood count 13.5, hemoglobin 14.3 hematocrit 43 platelets 202,000 with absolute lymphocyte counts 8400. Patient denies any weight loss rather weight gain since she was diagnosed with Covid infection in July 2020, also complaining of hot flashes since hysterectomy For, As per patient early uterine cancer, done 8-9 years ago. But denies any abdominal fullness denies any peripheral lymphadenopathy denies any recurrent infections denies any dysphagia, denies any jaundice, denies any skin rash or itching denies any recurrent fever, denies any bony pains but generalized weakness and fatigue Patient denies complaint of alcohol use Whole blood flow cytometry done on April 23, 2021 showed CD5 positive monotypic B-cell population favors atypical CLL/small lymphocytic lymphoma FISH was recommended for further prognostic assessment and to fully exclude an unusual mantle cell lymphoma As flow cytometric also showed CD38 expression and CD 49d expression, which have been reported adverse prognostic marker in CLL/SLL ,Prognostic profiling for CLL showed IGVH mutation, denotes favorable prognosis and trisomy 12 denotes intermediate prognosis, beta-2 microglobulin 1.96 normal being less than 2.51 mg/L, LDH 172 normal being 135-214 Abdominal sonogram Done on July 25, 2021 shows no organomegaly Patient presents today for follow-up. She states she has been feeling well. She denies fevers, night sweats, chills. No shortness of breath, chest pain, cough. Her appetite has been good. No GI or problems. No joint pain or muscle weakness. No neuropathy. Review Of Symptoms:See above. Past Medical History: History of uterine cancer Covid 19 in 2019 (Treated) Past Surgical History: Hysterectomy Tonsillectomy Allergies: No Known Allergies. Medications: Furosemide 1 Tablet (of 20 mg) Oral daily Family History: Ms. Rodriguez's mother at age 68: colon cancer. Ms. Rodriguez's father at age 69: brain cancer. Social History: Ms. Rodriguez is . Ms. Rodriguez has never smoked. She has no history of drinking. Physical Examination: Performed on Feb 10, 2022 15:49: Height - 64.00 in, Weight - 162.2 lbs (HIGH), BSA - 1.79 sq.m, BMI - 27.84, Temperature - 97.5 F (LOW), Pulse - 82 /min, Respiration - 16 /min, BP - 132/80 mm(hg), O2 Sat - 98 %, Pain - 0, and Fatigue - 0. Performance Status: 0 - Fully active, able to carry on all predisease activities without restrictions. (ECOG) Constitutional Alert, cooperative, oriented. Mood and affect appropriate. Appears close to chronological age. Well nourished. Well developed. Head Normocephalic; no scars. Hematologic/Lymphatic No petechiae or purpura. No tender or palpable lymph nodes in the cervical, supraclavicular, axillary or inguinal area. Respiratory Lungs are clear to auscultation without rhonchi or wheezing. Cardiovascular Regular rate and rhythm of heart without murmurs, gallops or rubs. Abdomen Non-tender, non-distended, no masses, ascites or hepatosplenomegaly. Good bowel sounds. No guarding or rebound tenderness. Musculoskeletal No tenderness or swelling, normal range of motion without obvious weakness. Psychiatric Alert and oriented times three. Coherent speech. Verbalizes understanding of our discussions today. Laboratory: Test performed on Feb 10, 2022 14:29 LDH (Total) 210 U/L Sodium 138 mmol/L Potassium 4.1 mmol/L Chloride 101 mmol/L CO2 28 mmol/L Anion Gap 13.1 BUN 14 mg/dL Creatinine 0.7 mg/dL Cr Clearance (Est) 93.0600 mL/min eGFR 84.0 mL/min Glucose 87 mg/dL Osmolality - Calculated 286 mOsm/kg Calcium 9.6 mg/dL Protein, Total 6.9 g/dL Albumin 4.7 g/dL Globulin 2.2 g/dL Bilirubin, Total 0.4 mg/dL ALT (SGPT) 17 U/L AST (SGOT) 23 U/L Alkaline Phosphatase 100 IU/L WBC 17.7 10 3/uL RBC 4.76 10 6/uL HGB 14.8 g/dL HCT 43.1 % MCV 90.5 fl MCH 31.1 pg MCHC 34.3 g/dL RDW 12.6 % Platelet Count 228 10 3/cmm MPV 9.2 fL Neutrophils 4.93 10 3/uL Lymphocytes 11.5 10 3/uL Monocytes 0.9 10 3/uL Eosinophils 0.3 10 3/uL Basophils 0.1 10 3/uL Neutrophil % 27.8 % Lymphocyte % 64.7 % Monocyte % 5.2 % Eosinophil % 1.4 % Basophils % 0.7 % NRBC % 0 % CBC Slide Review Slide Review Perform SLIDE REVIEW AGREES WITH AUTOMATED RESULTS Impression: Labs were reviewed with patient. WBC 17.7 hemoglobin 14.8, hematocrit 43.1, and platelet count 228,000. LDH 210. Patient doing well with no signs or symptoms of disease progression. 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 Plan: Labs were reviewed with patient. WBC 17.7 hemoglobin 14.8, hematocrit 43.1, and platelet count 228,000. LDH 210. Patient doing well with no signs or symptoms of disease progression. She will return to the clinic in 3 months with CBC, CMP, LDH. Signed By: Kyra Arauz N.P. <<Signature on File>>
== END 2022-02-10 13:40 | disposition home or self-care (01) ==
LOC: ONCMED 13:47
PROVIDERS: PCP Nurse Practitioner Family; Visit Provider Nurse Practitioner Family
DX: D72.820 Lymphocytosis (symptomatic) (principal); R53.1 Weakness; R53.83 Other fatigue; Z85.42 Personal history of malignant neoplasm of other parts of uterus; Z90.710 Acquired absence of both cervix and uterus
CPT/HCPCS: 36415; 80053; 83615; 85025; 99214

== ENCOUNTER → 2022-05-01 11:25 | Outpatient (BNVA) | payer MEDICARE, OTHER, SELFPAY | PROVIDERS: PCP Nurse Practitioner Family; Visit Provider Nurse Practitioner Family | DX: U07.1 COVID-19 (principal); R53.83 Other fatigue; Z12.39 Encounter for other screening for malignant neoplasm of breast | CPT/HCPCS: 84439; 84443; 84481 ==

== ENCOUNTER 2022-05-30 08:38 | Outpatient (CLI) | payer MEDICARE, OTHER, SELFPAY ==
--- NOTE | 2022-05-30 08:47 | MM_ITS ---
WS: [id number] BILATERAL SCREENING DIGITAL BREAST TOMOSYNTHESIS MAMMOGRAM WITH CAD HISTORY: SCREENING COMPARISON: 12/08/2019 and 05/03/2014 Bilateral CC and MLO views with tomosynthesis and synthetic mammography submitted. Computer aided det ection analyzed. Breast composition: The breasts are heterogeneously dense, which may obscure small masses. No suspici ous masses, microcalcifications or architectural distortion. MM/[id number] IMPRESSION: BI-RADS: 1-Negative FOLLOW UP: 1 Year Follow-up
== END 2022-05-30 08:39 | disposition home or self-care (01) ==
PROVIDERS: PCP Nurse Practitioner Family; Visit Provider Nurse Practitioner Family
DX: Z12.31 Encounter for screening mammogram for malignant neoplasm of breast (principal)
CPT/HCPCS: 77063; 77067

== ENCOUNTER → 2022-06-13 10:28 | Outpatient (BNVA) | payer MEDICARE, OTHER, SELFPAY | PROVIDERS: PCP Nurse Practitioner Family; Visit Provider Internal Medicine Critical Care Medicine | DX: R06.02 Shortness of breath (principal); I51.89 Other ill-defined heart diseases | CPT/HCPCS: 99213 ==

== ENCOUNTER 2022-07-08 11:32 | Oncology outpatient (recurring) (ONCR) | payer MEDICARE, OTHER, SELFPAY ==
[2022-07-08 12:00] LABS: Hematocrit 43.3 % (37.0-47.0); Hemoglobin 14.5 g/dL (11.5-15.3); Mean Corpuscular HGB Conc 33.5 g/dL (30.0-36.0); Mean Corpuscular Hemoglobin 31.3 pg (28.0-34.0); Mean Corpuscular Volume 93.5 fl (81-99); Mean Platelet Volume 9.4 fL (7.4-10.4); Platelet Count 206 10^3/cmm (130-400); Red Blood Count 4.63 10^6/uL (4.1-5.3); Red Cell Distribution Width 13.2 % (12.1-15.1); White Blood Count 19.5 10^3/uL (4.0-10.0)
[2022-07-08 12:18] LABS: Alanine Aminotransferase 15 U/L (0-33); Albumin Level 4.6 g/dL (3.5-5.2); Alkaline Phosphatase 84 U/L (35-105); Aspartate Amino Transferase 22 U/L (0-32); Blood Urea Nitrogen 14 mg/dL (8-23); Calcium 9.2 mg/dL (8.5-10.5); Carbon Dioxide 25 mmol/L (22-29); Chloride 99 mmol/L (98-107); Globulin 2.3 g/dL (1.3-4.6); Glucose 122 mg/dL (65-115); Osmolality Calculated 282 mOsm/kg (285-295); Sodium 135 mmol/L (136-145); Total Bilirubin 0.5 mg/dL (0.15-1.2); Total Protein 6.9 g/dL (6.6-8.7)
[2022-07-08 12:22] LABS: Anion Gap 15.5 (5-19); Lactate Dehydrogenase 207 U/L (135-214); Potassium 4.5 mmol/L (3.5-5.1)
[2022-07-08 12:47] LABS: Absolute Eosinophils 0.1 10^3/cmm (0.0-0.7); Eosinophils 1 %; Lymphocytes 39 %; Lymphocytes Absolute 12.7 10^3/cmm (1.2-3.4); Monocytes Absolute 0.6 10^3/cmm (0.1-0.6); Segmented Neutrophils 31 %; Slide Review Slide Review Perform; Total Cells Counted 100 (0-100)
[2022-07-08 12:48] LABS: Platelet Estimate Normal (Normal)
== END 2022-07-09 23:59 | disposition home or self-care (01) ==
PROVIDERS: Nurse Practitioner Family; PCP Nurse Practitioner Family; Visit Provider Internal Medicine Hematology & Oncology
DX: C91.10 Chronic lymphocytic leukemia of B-cell type not having achieved remission (principal); R63.5 Abnormal weight gain; Z68.28 Body mass index [BMI] 28.0-28.9, adult
CPT/HCPCS: 36415; 80053; 83615; 85007; 85025; 99214

== ENCOUNTER 2022-08-08 09:50 | Oncology outpatient (recurring) (ONCR) | payer MEDICARE, OTHER, SELFPAY ==
[2022-08-08 10:11] LABS: Hematocrit 42.5 % (37.0-47.0); Hemoglobin 14.5 g/dL (11.5-15.3); Mean Corpuscular HGB Conc 34.1 g/dL (30.0-36.0); Mean Platelet Volume 9.3 fL (7.4-10.4); Platelet Count 212 10^3/cmm (130-400); Red Blood Count 4.67 10^6/uL (4.1-5.3); White Blood Count 18.6 10^3/uL (4.0-10.0)
[2022-08-08 10:32] LABS: Absolute Neutrophil 6.3 10^3/cmm (1.4-6.5); Absolute Segmented Neutrophil 6.3 10/cmm (1.6-7.1); Eosinophils 0 %; Lymphocytes 5 %; Lymphocytes Absolute 11.7 10^3/cmm (1.2-3.4); Monocytes Absolute 0.6 10^3/cmm (0.1-0.6); Platelet Estimate Normal (Normal); Segmented Neutrophils 34 %; Total Cells Counted 100 (0-100)
[2022-08-08 10:42] LABS: Lactate Dehydrogenase 174 U/L (135-214)
== END 2022-08-08 23:59 | disposition home or self-care (01) ==
PROVIDERS: PCP Nurse Practitioner Family; Visit Provider Internal Medicine Hematology & Oncology
DX: D72.820 Lymphocytosis (symptomatic) (principal); Z86.16 Personal history of COVID-19
CPT/HCPCS: 36415; 83615; 85007; 85025; 99214

== ENCOUNTER 2022-11-12 12:55 | Oncology outpatient (recurring) (ONCR) | payer MEDICARE, OTHER, SELFPAY ==
[2022-11-12 13:15] LABS: Basophils # 0.2 10^3/uL (0.0-0.1); Basophils % 0.8 %; Eosinophils # 0.3 10^3/uL (0.0-0.8); Eosinophils % 1.5 %; Hematocrit 43.5 % (37.0-47.0); Hemoglobin 14.7 g/dL (11.5-15.3); Lymphocytes # 13.6 10^3/uL (0.8-4.8); Lymphocytes % 66.8 %; Mean Corpuscular HGB Conc 33.8 g/dL (30.0-36.0); Mean Corpuscular Hemoglobin 31.1 pg (28.0-34.0); Mean Platelet Volume 8.9 fL (7.4-10.4); Monocytes # 0.8 10^3/uL (0.2-0.9); Monocytes % 3.8 %; Neutrophils # 5.48 10^3/uL (1.8-7.7); Neutrophils % 26.9 %; Nucleated Red Blood Cells % 0 %; Platelet Count 253 10^3/cmm (130-400); Red Blood Count 4.73 10^6/uL (4.1-5.3); Red Cell Distribution Width 12.9 % (12.1-15.1); White Blood Count 20.4 10^3/uL (4.0-10.0)
[2022-11-12 13:35] LABS: Alanine Aminotransferase 18 U/L (0-33); Albumin Level 4.6 g/dL (3.5-5.2); Alkaline Phosphatase 83 U/L (35-105); Aspartate Amino Transferase 19 U/L (0-32); Blood Urea Nitrogen 11 mg/dL (8-23); Calcium 9.2 mg/dL (8.5-10.5); Carbon Dioxide 28 mmol/L (22-29); Chloride 101 mmol/L (98-107); Globulin 2.4 g/dL (1.3-4.6); Glomerular Filtration Rate 83.7 mL/min (90-130); Glucose 145 mg/dL (65-115); Lactate Dehydrogenase 244 U/L (135-214); Osmolality Calculated 292 mOsm/kg (285-295); Sodium 140 mmol/L (136-145); Total Bilirubin 0.4 mg/dL (0.15-1.2)
[2022-11-12 14:45] LABS: Slide Review Slide Review Perform
== END 2022-12-09 23:59 | disposition home or self-care (01) ==
PROVIDERS: PCP Nurse Practitioner Family; Visit Provider Internal Medicine Hematology & Oncology
DX: D72.820 Lymphocytosis (symptomatic) (principal); R74.02 Elevation of levels of lactic acid dehydrogenase [LDH]; Z86.16 Personal history of COVID-19; Z90.710 Acquired absence of both cervix and uterus
CPT/HCPCS: 36415; 80053; 83615; 85025; 99214

== ENCOUNTER 2022-11-25 12:21 | Outpatient (CLI) | payer MEDICARE, OTHER, SELFPAY ==
--- NOTE | 2022-11-25 12:33 | XR_ITS ---
WS: [id number] Right ankle, 3 views, 11/25/2022 Clinical Data: M25.571 - Pain in right ankle and joints of right foot Comparison: None. Findings: No fractures or dislocations are seen. The ankle mortise is normal. The talus and calcaneus are unrem arkable. No soft tissue swelling over the medial or lateral malleolus is seen. There is an Achilles spur. XR/XR ankle RT min 3V* [id number] Impression: Negative right ankle.
== END 2022-11-25 12:22 | disposition home or self-care (01) ==
LOC: RAD 12:25
PROVIDERS: PCP Nurse Practitioner Family; Visit Provider Nurse Practitioner Family
DX: M25.571 Pain in right ankle and joints of right foot (principal)
CPT/HCPCS: 73610

== ENCOUNTER 2023-05-21 12:57 | Oncology outpatient (recurring) (ONCR) | payer MEDICARE, OTHER, SELFPAY ==
[2023-05-21 13:04] VITALS: BP 121/81; PULSE 62; RESP 18; TEMP 36.6; O2SAT 98
[2023-05-21 13:19] LABS: Basophils # 0.2 10^3/uL (0.0-0.1); Basophils % 0.8 %; Eosinophils # 0.3 10^3/uL (0.0-0.8); Eosinophils % 1.2 %; Hematocrit 42.6 % (37.0-47.0); Hemoglobin 14.5 g/dL (11.5-15.3); Lymphocytes # 16.3 10^3/uL (0.8-4.8); Lymphocytes % 74.3 %; Mean Corpuscular Hemoglobin 30.7 pg (28.0-34.0); Mean Corpuscular Volume 90.1 fl (81-99); Mean Platelet Volume 9.3 fL (7.4-10.4); Monocytes # 0.8 10^3/uL (0.2-0.9); Monocytes % 3.7 %; Neutrophils # 4.33 10^3/uL (1.8-7.7); Neutrophils % 19.8 %; Nucleated Red Blood Cells % 0 %; Platelet Count 238 10^3/cmm (130-400); Red Blood Count 4.73 10^6/uL (4.1-5.3); White Blood Count 21.9 10^3/uL (4.0-10.0)
[2023-05-21 13:36] LABS: Alanine Aminotransferase 16 U/L (0-33); Albumin Level 4.5 g/dL (3.5-5.2); Alkaline Phosphatase 81 U/L (35-105); Anion Gap 14.5 (5-19); Aspartate Amino Transferase 21 U/L (0-32); Blood Urea Nitrogen 11 mg/dL (8-23); Calcium 9.2 mg/dL (8.5-10.5); Carbon Dioxide 27 mmol/L (22-29); Chloride 99 mmol/L (98-107); Globulin 2.3 g/dL (1.3-4.6); Glomerular Filtration Rate 71.8 mL/min (90-130); Glucose 82 mg/dL (65-115); Lactate Dehydrogenase 171 U/L (135-214); Osmolality Calculated 280 mOsm/kg (285-295); Potassium 4.5 mmol/L (3.5-5.1); Sodium 136 mmol/L (136-145); Total Bilirubin 0.6 mg/dL (0.15-1.2); Total Protein 6.8 g/dL (6.6-8.7)
[2023-05-21 13:46] LABS: Slide Review Slide Review Perform
== END 2023-06-08 23:59 | disposition home or self-care (01) ==
PROVIDERS: PCP Nurse Practitioner Family; Visit Provider Internal Medicine Hematology & Oncology
DX: D72.820 Lymphocytosis (symptomatic) (principal); R74.02 Elevation of levels of lactic acid dehydrogenase [LDH]; Z86.16 Personal history of COVID-19; Z90.710 Acquired absence of both cervix and uterus
CPT/HCPCS: 36415; 80053; 83615; 85025; 99214

== ENCOUNTER → 2023-05-27 08:40 | Outpatient (BNVA) | payer MEDICARE, OTHER, SELFPAY | PROVIDERS: PCP Nurse Practitioner Family; Visit Provider Nurse Practitioner Family | DX: Z12.31 Encounter for screening mammogram for malignant neoplasm of breast (principal); Z12.4 Encounter for screening for malignant neoplasm of cervix; Z85.42 Personal history of malignant neoplasm of other parts of uterus | CPT/HCPCS: 88175 ==

== ENCOUNTER 2023-06-11 11:02 | Outpatient (CLI) | payer MEDICARE, OTHER, SELFPAY ==
--- NOTE | 2023-06-11 11:29 | MM_ITS ---
WS: [id number] Bilateral screening 3D tomosynthesis digital mammogram, 06/11/2023 Clinical Data: SCREENING Comparison: 05/30/2022, 09/07/2020, 05/03/2014, 03/23/2013, 03/11/2012. Findings: The breast parenchymal pattern shows heterogeneous density. No spiculated masses or clustered calcifi cations are seen. There are no secondary signs of carcinoma. MM/[id number] Impression: 1. Negative bilateral mammogram unchanged. 2. Recommend annual screening mammograms. BIRADS: 1-Negative FOLLOW UP: 1 Year Follow-up The CAD furnace checker was used.
== END 2023-06-11 11:03 | disposition home or self-care (01) ==
PROVIDERS: PCP Nurse Practitioner Family; Visit Provider Nurse Practitioner Family
DX: Z12.31 Encounter for screening mammogram for malignant neoplasm of breast (principal)
CPT/HCPCS: 77063; 77067; 88175

== ENCOUNTER 2023-11-18 10:48 | Oncology outpatient (recurring) (ONCR) | payer MEDICARE, OTHER, SELFPAY ==
[2023-11-18 11:46] LABS: Hematocrit 40.4 % (36-47); Mean Corpuscular HGB Conc 34.2 g/dL (30-55); Mean Corpuscular Hemoglobin 30.3 pg (27-33); Mean Corpuscular Volume 88.8 fl (85-98); Platelet Count 167 10^3/cmm (157-399); Red Blood Count 4.55 10^6/uL (3.85-5.65); Red Cell Distribution Width 12.8 % (12.1-15.1); White Blood Count 22.74 10^3/uL (3.29-11.43)
[2023-11-18 11:53] VITALS: BP 129/81; PULSE 63; RESP 16; TEMP 36.5; O2SAT 97
[2023-11-18 12:05] LABS: Alanine Aminotransferase 17 U/L (0-33); Albumin Level 4.1 g/dL (3.5-5.2); Alkaline Phosphatase 77 U/L (35-105); Anion Gap 13.6 (5-19); Aspartate Amino Transferase 21 U/L (0-32); Blood Urea Nitrogen 10 mg/dL (8-23); Calcium 9.2 mg/dL (8.5-10.5); Carbon Dioxide 27 mmol/L (22-29); Chloride 104 mmol/L (98-107); Globulin 2.4 g/dL (1.3-4.6); Glomerular Filtration Rate 83.5 mL/min (90-130); Glucose 86 mg/dL (65-115); Osmolality Calculated 288 mOsm/kg (285-295); Potassium 4.6 mmol/L (3.5-5.1); Sodium 140 mmol/L (136-145); Total Bilirubin 0.4 mg/dL (0.15-1.2); Total Protein 6.5 g/dL (6.6-8.7)
[2023-11-18 12:10] LABS: Lactate Dehydrogenase 200 U/L (135-214)
[2023-11-18 12:12] LABS: Slide Review Slide Review Perform
[2023-11-18 12:16] LABS: Total Cells Counted 100 (0-100)
[2023-11-18 12:17] LABS: Absolute Eosinophils 0.7 10^3/cmm (0.0-0.7); Absolute Neutrophil 3.9 10^3/cmm (1.4-6.5); Absolute Segmented Neutrophil 3.9 10/cmm (1.6-7.1); Anisocytosis Trace; Eosinophils 3 %; Lymphocytes 42 %; Monocytes Absolute 0.2 10^3/cmm (0.1-0.6); Platelet Estimate Normal (Normal); Segmented Neutrophils 17 %
== END 2023-12-09 23:59 | disposition home or self-care (01) ==
PROVIDERS: Nurse Practitioner Family; PCP Nurse Practitioner Family; Visit Provider Internal Medicine Hematology & Oncology
DX: D72.820 Lymphocytosis (symptomatic) (principal); R74.02 Elevation of levels of lactic acid dehydrogenase [LDH]; Z86.16 Personal history of COVID-19; Z90.710 Acquired absence of both cervix and uterus
CPT/HCPCS: 36415; 80053; 83615; 85007; 85025; 99214

== ENCOUNTER → 2024-02-25 10:05 | Outpatient (BNVA) | payer MEDICARE, OTHER, SELFPAY | PROVIDERS: PCP Nurse Practitioner Family; Visit Provider Nurse Practitioner Family | DX: N39.0 Urinary tract infection, site not specified (principal); I51.89 Other ill-defined heart diseases | CPT/HCPCS: 81000 ==

== ENCOUNTER → 2024-06-02 15:53 | Outpatient (BNVA) | payer MEDICARE, OTHER, SELFPAY | PROVIDERS: PCP Nurse Practitioner Family; Referring Provider Nurse Practitioner Family; Visit Provider Internal Medicine Cardiovascular Disease | DX: R06.02 Shortness of breath (principal); R01.1 Cardiac murmur, unspecified; I51.89 Other ill-defined heart diseases; R00.1 Bradycardia, unspecified; R06.09 Other forms of dyspnea; C91.10 Chronic lymphocytic leukemia of B-cell type not having achieved remission; Z87.891 Personal history of nicotine dependence | CPT/HCPCS: 80048; 83880; 93005; 99204 ==

== ENCOUNTER 2024-06-08 09:51 | Oncology outpatient (recurring) (ONCR) | payer MEDICARE, OTHER, SELFPAY ==
[2024-06-08 10:23] LABS: Hematocrit 43.6 % (36-47); Mean Corpuscular HGB Conc 34.2 g/dL (30-55); Mean Corpuscular Hemoglobin 30.7 pg (27-33); Mean Corpuscular Volume 89.9 fl (85-98); Platelet Count 198 10^3/cmm (157-399); Red Blood Count 4.85 10^6/uL (3.85-5.65); Red Cell Distribution Width 12.8 % (12.1-15.1)
[2024-06-08 10:42] LABS: Alanine Aminotransferase 15 U/L (0-33); Albumin Level 4.6 g/dL (3.5-5.2); Alkaline Phosphatase 78 U/L (35-105); Anion Gap 15.4 (5-19); Aspartate Amino Transferase 19 U/L (0-32); Blood Urea Nitrogen 13 mg/dL (8-23); Calcium 9.4 mg/dL (8.5-10.5); Carbon Dioxide 26 mmol/L (22-29); Chloride 103 mmol/L (98-107); Globulin 2.6 g/dL (1.3-4.6); Glomerular Filtration Rate 71.5 mL/min (90-130); Glucose 95 mg/dL (65-115); Lactate Dehydrogenase 181 U/L (135-214); Osmolality Calculated 290 mOsm/kg (285-295); Potassium 4.4 mmol/L (3.5-5.1); Sodium 140 mmol/L (136-145); Total Bilirubin 0.6 mg/dL (0.15-1.2); Total Protein 7.2 g/dL (6.6-8.7)
[2024-06-08 11:06] LABS: Slide Review Slide Review Perform
[2024-06-08 11:07] LABS: Absolute Neutrophil 4.9 10^3/cmm (1.4-6.5); Absolute Segmented Neutrophil 4.9 10/cmm (1.6-7.1); Eosinophils 0 %; Lymphocytes 56 %; Lymphocytes Absolute 19.4 10^3/cmm (1.2-3.4); Monocytes Absolute 0.2 10^3/cmm (0.1-0.6); Platelet Estimate Normal (Normal); Segmented Neutrophils 20 %; Total Cells Counted 100 (0-100)
== END 2024-06-08 23:59 | disposition home or self-care (01) ==
PROVIDERS: Nurse Practitioner Family; PCP Nurse Practitioner Family; Visit Provider Internal Medicine Hematology & Oncology
DX: C91.10 Chronic lymphocytic leukemia of B-cell type not having achieved remission (principal); R06.09 Other forms of dyspnea
CPT/HCPCS: 36415; 80053; 83615; 85007; 85025; 99213

== ENCOUNTER 2024-06-24 15:54 | Oncology outpatient (recurring) (ONCR) | payer MEDICARE, OTHER, SELFPAY ==
--- NOTE | 2024-06-24 16:30 | USCV_ITS ---
Nelsy Rodriguez Age: 68 Gender: F : 1955 Exam Date: 06/24/2024 16:16 Ordering Phys: Shayne Barlow MD ([email or web address]) Technologist: CT Exam Location: [facility] [place] Indication: cp BP: 122 / 80 HR: 64 Rhythm: Sinus Technical Quality: Adequate MEASUREMENTS (Male / Female) Normal Values 2D ECHO LVOT Diameter 2.0 cm LV Ejection Fraction MOD 4C 66.9 % LV Ejection Fraction MOD 2C 73.0 % LV Ejection Fraction 2C AL 72.8 % LA Diameter 2.2 cm RA Systolic Volume 4C AL 27.0 ml RA Systolic Volume 4C MOD 25.9 ml LA Sys Volume AL 34.9 cm cubed LA Sys Volume Index AL 18.7 cm cubed/m squared Aorta at Sinotubular Diameter 2.1 cm IVC Diameter 1.5 cm M-MODE LA Ao Ratio MM 1.2 AV Cusp Separation MM 1.5 cm DOPPLER AV Peak Velocity 152.0 cm/s LVOT Peak Velocity 122.0 cm/s AV Area Cont Eq vti 2.5 cm squared AV Area Cont Eq pk 2.6 cm squared MV Peak Velocity 264.5 cm/s MV Area PHT 3.1 cm squared Mitral E to A Ratio 1.1 TV Peak Velocity 232.0 cm/s TR Peak Velocity 233.0 cm/s TR Peak Gradient 21.7 mmHg TV Peak E Velocity 94.0 cm/s Right Atrial Pressure 3.0 mmHg Pulmonary Artery Systolic Pressu 24.7 mmHg PV Peak Velocity 105.5 cm/s FINDINGS Left Ventricle Normal left ventricular size, systolic function and wall thickness, with no regional wall motion abnormalities. Estimated ejection fraction 60%. Grade I/IV diastolic dysfunction (abnormal relaxation filling pattern), normal to mildly elevated filling pressures. Right Ventricle The right ventricle is normal in size and function. Right Atrium The right atrium is normal in size. Left Atrium The left atrium is normal in size. Mitral Valve Structurally normal mitral valve without significant stenosis or prolapse. There is trace mitral regurgitation. Aortic Valve Structurally normal aortic valve without significant sclerosis or stenosis. There is no aortic regurgitation. Tricuspid Valve Structurally normal tricuspid valve without significant stenosis and mild regurgitation. Pulmonary artery systolic pressure is normal. Pulmonic Valve Structurally normal pulmonic valve without significant stenosis. There is no pulmonic regurgitation. Pericardium Normal pericardium without effusion. Aorta Normal ascending aorta dimension. IVC The inferior vena cava appears normal. CONCLUSIONS Normal left ventricular size, systolic function and wall thickness, with no regional wall motion abnormalities. Estimated ejection fraction 60%. Grade I/IV diastolic dysfunction (abnormal relaxation filling pattern), normal to mildly elevated filling pressures. Structurally normal mitral valve without significant stenosis or prolapse. There is trace mitral regurgitation. There is no pericardial effusion. Pulmonary artery systolic pressure is within normal limits. Right atrial pressure is around 2 mm of mercury. Richard Jones MD (Electronically Signed) Final Date: 24 June 2024 18:24 S
== END 2024-07-09 23:59 | disposition home or self-care (01) ==
LOC: ONCMED 15:54 → RAD 15:56 → ONCMED 06-30 16:34
PROVIDERS: PCP Nurse Practitioner Family; Visit Provider Internal Medicine Cardiovascular Disease
DX: R06.09 Other forms of dyspnea; I50.30 Unspecified diastolic (congestive) heart failure; I34.0 Nonrheumatic mitral (valve) insufficiency
CPT/HCPCS: 93306

== ENCOUNTER → 2024-08-08 14:19 | Outpatient (BNVA) | payer MEDICARE, OTHER, SELFPAY | PROVIDERS: PCP Nurse Practitioner Family; Visit Provider Nurse Practitioner Family | DX: T14.8XXA Other injury of unspecified body region, initial encounter (principal); C91.10 Chronic lymphocytic leukemia of B-cell type not having achieved remission; X58.XXXA Exposure to other specified factors, initial encounter | CPT/HCPCS: 80053; 83550; 85007; 85027 ==

== ENCOUNTER → 2024-08-30 13:30 | Outpatient (BNVA) | payer MEDICARE, OTHER, SELFPAY | PROVIDERS: PCP Nurse Practitioner Family; Visit Provider Internal Medicine Cardiovascular Disease | DX: I51.89 Other ill-defined heart diseases (principal); R06.09 Other forms of dyspnea; C91.10 Chronic lymphocytic leukemia of B-cell type not having achieved remission; M79.89 Other specified soft tissue disorders; Z87.891 Personal history of nicotine dependence | CPT/HCPCS: 99214 ==

== ENCOUNTER 2024-12-14 12:13 | Oncology outpatient (recurring) (ONCR) | payer MEDICARE, OTHER, SELFPAY ==
[2024-12-14 12:39] LABS: Basophils # 0.2 10^3/uL (0.0-0.1); Basophils % 0.7 %; Eosinophils # 0.2 10^3/uL (0.0-0.8); Eosinophils % 0.9 %; Hematocrit 41.8 % (36-47); Lymphocytes # 17.4 10^3/uL (0.8-4.8); Mean Corpuscular HGB Conc 34.2 g/dL (30-55); Mean Corpuscular Hemoglobin 30.9 pg (27-33); Mean Corpuscular Volume 90.3 fl (85-98); Mean Platelet Volume 9.1 fL (7.4-10.4); Monocytes # 1.4 10^3/uL (0.2-0.9); Monocytes % 5.7 %; Neutrophils # 4.98 10^3/uL (1.8-7.7); Neutrophils % 20.6 %; Nucleated Red Blood Cells % 0 %; Platelet Count 196 10^3/cmm (157-399); Red Blood Count 4.63 10^6/uL (3.85-5.65); Red Cell Distribution Width 13.2 % (12.1-15.1); White Blood Count 24.17 10^3/uL (3.29-11.43)
[2024-12-14 12:54] LABS: Slide Review Slide Review Perform
[2024-12-14 12:56] LABS: Alanine Aminotransferase 16 U/L (0-33); Albumin Level 4.4 g/dL (3.5-5.2); Alkaline Phosphatase 78 U/L (35-105); Anion Gap 15.5 (5-19); Aspartate Amino Transferase 21 U/L (0-32); Blood Urea Nitrogen 10 mg/dL (8-23); Calcium 9.4 mg/dL (8.5-10.5); Carbon Dioxide 26 mmol/L (22-29); Chloride 101 mmol/L (98-107); Globulin 2.5 g/dL (1.3-4.6); Glomerular Filtration Rate 83.2 mL/min (90-130); Glucose 132 mg/dL (65-115); Lactate Dehydrogenase 184 U/L (135-214); Osmolality Calculated 287 mOsm/kg (285-295); Potassium 4.5 mmol/L (3.5-5.1); Sodium 138 mmol/L (136-145); Total Bilirubin 0.5 mg/dL (0.15-1.2); Total Protein 6.9 g/dL (6.6-8.7)
== END 2025-01-06 23:59 | disposition home or self-care (01) ==
PROVIDERS: Internal Medicine Medical Oncology; PCP Nurse Practitioner Family; Visit Provider Internal Medicine Cardiovascular Disease
DX: Z08 Encounter for follow-up examination after completed treatment for malignant neoplasm (principal); Z85.6 Personal history of leukemia; R05.9 Cough, unspecified; R06.02 Shortness of breath; Z87.891 Personal history of nicotine dependence
CPT/HCPCS: 36415; 80053; 83615; 85025; 99214

== ENCOUNTER 2025-06-15 07:39 | Oncology outpatient (recurring) (ONCR) | payer MEDICARE, OTHER, SELFPAY ==
[2025-06-15 08:23] LABS: Hemoglobin 14.20 g/dL (11.27-16.99); Nucleated Red Blood Cells % 0 %
[2025-06-15 08:30] LABS: Hematocrit 41.2 % (36-47); Mean Corpuscular HGB Conc 34.5 g/dL (30-55); Mean Corpuscular Hemoglobin 31.1 pg (27-33); Mean Corpuscular Volume 90.2 fl (85-98); Platelet Count 196 10^3/cmm (157-399); Red Blood Count 4.57 10^6/uL (3.85-5.65); White Blood Count 20.92 10^3/uL (3.29-11.43)
[2025-06-15 08:42] LABS: Slide Review Slide Review Perform
[2025-06-15 08:43] LABS: Alanine Aminotransferase 16 U/L (0-33); Albumin Level 4.5 g/dL (3.5-5.2); Alkaline Phosphatase 85 U/L (35-105); Anion Gap 13.5 (5-19); Aspartate Amino Transferase 20 U/L (0-32); Blood Urea Nitrogen 13 mg/dL (8-23); Calcium 9.4 mg/dL (8.5-10.5); Carbon Dioxide 26 mmol/L (22-29); Chloride 105 mmol/L (98-107); Creatinine Clr Calc Pharmacy 65.5227; Globulin 2.2 g/dL (1.3-4.6); Glucose 90 mg/dL (65-115); Osmolality Calculated 290 mOsm/kg (285-295); Potassium 4.5 mmol/L (3.5-5.1); Sodium 140 mmol/L (136-145); Total Protein 6.7 g/dL (6.6-8.7)
== END 2025-07-09 23:59 | disposition home or self-care (01) ==
PROVIDERS: Nurse Practitioner Family; PCP Nurse Practitioner Family; Visit Provider Internal Medicine Cardiovascular Disease
DX: Z08 Encounter for follow-up examination after completed treatment for malignant neoplasm (principal); Z85.6 Personal history of leukemia; D50.9 Iron deficiency anemia, unspecified; Z87.891 Personal history of nicotine dependence
CPT/HCPCS: 36415; 80053; 83615; 85025; 99213

== ENCOUNTER → 2025-08-29 10:19 | Outpatient (BNVA) | payer MEDICARE, OTHER, SELFPAY | PROVIDERS: PCP Nurse Practitioner Family; Visit Provider Internal Medicine Cardiovascular Disease | DX: I51.9 Heart disease, unspecified (principal); C91.10 Chronic lymphocytic leukemia of B-cell type not having achieved remission; M79.89 Other specified soft tissue disorders | CPT/HCPCS: 99214 ==